=== PATIENT | male | born 1955 | race Caucasian/White ===

== ENCOUNTER 2023-11-01 09:49 | Emergency (ER) | payer MEDICARE, SELFPAY ==
[2023-11-01] VITALS (16 sets, daily range): BP systolic 135–167; BP diastolic 85–100; PULSE 92–114; RESP 14–23; TEMP 36.7; O2SAT 93–96; BMI 24.3
--- NOTE | 2023-11-01 10:15 | DI.RAD.S_ITS ---
PROCEDURE: XR CHEST 1V INDICATIONS: chest pain TECHNIQUE: One view of the chest was acquired. COMPARISON: None. FINDINGS: Surgical changes and devices: None. Lungs and pleura: Right lower lung field opacity. No pleural effusions or pneumothorax. Mediastinum: Mediastinal contours appear normal. Heart size is normal. Bones and chest wall: No suspicious bony lesions. Overlying soft tissues appear unremarkable. IMPRESSION: Right lower lung field opacity concerning for pneumonia. Recommend follow-up radiographs to resolution. Dictated by: Romeo Burton M.D. on 11/01/2023 at 10:39 Approved by: Romeo Burton M.D. on 11/01/2023 at 10:40
[2023-11-01] MEDS: ASPIRIN 81 MG CHEW TAB 324 MG PO (10:19)
[2023-11-01 10:28] LABS: Add Manual Diff / Slide Review YES; Hematocrit 42.2 % (41-53); Hemoglobin 13.7 g/dL (13.5-17.5); INR 1.1 (0.9-1.3); Mean Corpuscular HGB Conc 32.4 % (30-36); Mean Corpuscular Hemoglobin 28.2 PG (26-34); Mean Corpuscular Volume 87.1 fL (80-100); Platelet Count 353 X10^3/uL (150-400); Prothrombin Time 12.4 SECONDS (9.4-12.5); Red Blood Cell Count 4.84 X10^6/uL (4.5-5.9); Red Cell Distribution Width 14.1 % (11.6-14.8); White Blood Cell Count 13.6 X10^3/uL (4.5-11.0)
[2023-11-01 10:31] LABS: PTT Partial Thromboplastin Tim 36 SECONDS (25.1-36.5)
[2023-11-01 10:36] LABS: Alanine Aminotransferase 18 IU/L (<50); Albumin 4.2 g/dL (3.5-5.0); Alkaline Phosphatase 120 U/L (38-126); Aspartate Aminotransferase 23 IU/L (17-59); BUN Creatinine Ratio 26.7 (6-22); Bilirubin Total 0.7 mg/dL (0.2-1.3); Blood Urea Nitrogen 23 mg/dL (9-20); Calcium 9.7 mg/dL (8.4-10.2); Carbon Dioxide 29 mmol/L (22-32); Chloride 101 mmol/L (98-107); Creatine Kinase 61 U/L (55-170); Estimated Glomerular Filt Rate > 60 mL/min (>60); Globulin 4.1 g/dL (1.7-4.1); Glucose 139 mg/dL (80-110); HEMOLYSIS 17 (0-50); Lipase 33 U/L (23-300); Magnesium 2.2 mg/dL (1.6-2.3); Potassium 4.4 mmol/L (3.4-5.1); Sodium 135 mmol/L (137-145); Total Protein 8.3 g/dL (6.3-8.2)
[2023-11-01 10:46] LABS: Troponin I < 0.012 ng/mL (0.01-0.034)
[2023-11-01 11:00] LABS: Neutrophils Absolute Manual 11832 /uL (3000-5900); RBC Morphology Normal Morphology; Total Cells Counted 100
--- NOTE | 2023-11-01 11:09 | ED_ITS ---
HPI - Chest Pain General Chief Complaint: Chest Pain Stated Complaint: Cest pain when he coughs and right shoulder pain Time Seen by Provider: 11/01/23 11:08 Source: patient Mode of arrival: Ambulatory Limitations: no limitations History of Present Illness HPI narrative: Patient is a 68-year-old male who has a active smoker does not go to doctors presents today with increasing shortness of breath and right shoulder pain ongoing for the last 5 days. He reports that he started maybe having some pain with deep breathing and then had some right shoulder pain that is fairly constant. Having any chest pain now. He does have some increasing shortness of breath. He denies any fever or chills. No abdominal pain nausea or vomiting. He has no right upper quadrant pain. Pain in his right shoulder not reproducible with movement. He denies any sort of injury. He is noted to be tachycardic. Denies recent travel. Related Data Previous Rx's Medication Instructions Recorded hydrocodone 5 mg-acetaminophen 325 1 tab PO Q6H PRN pain #10 tabs 11/01/23 mg tablet Allergies Allergy/AdvReac Type Severity Reaction Status Date / Time No Known Drug Allergies Allergy Verified 11/01/23 10:15 Patient History Social History Smoking Status: Current every day smoker Smoking Status: Current every day smoker alcohol intake frequency: holidays/special occasions only Substance Use Type: marijuana Exam Initial Vital Signs Initial Vital Signs: Vital Signs Blood Pressure 142/95 H 11/01/23 10:07 GENERAL: Alert pleasant 68-year-old male and in no acute distress. HEENT: Head atraumatic,EOMI, pupils reactive, face symmetric, moist mucous membranes CARDIOVASCULAR: Regular rate and rhythm without murmurs, rubs or gallops. RESPIRATORY: Breath sounds equal bilaterally, no wheezes rales or rhonchi. ABDOMEN: Soft, nontender. Normoactive bowel sounds all 4 quadrants. No guarding or rebound. EXTREMITIES: Normal range of motion, no clubbing or edema. Neurovascularly intact NEUROLOGICAL: Alert and oriented x4. SKIN: Warm, dry, no laceration, no petechiae, no rashes or lesions. Course Orders Ordered: ED Orders 11/01/23 10:12 Complete Blood Count AUTO DIFF Stat Comprehensive Metabolic Panel Stat D Dimer Stat Lipase Stat Magnesium Stat PTT Partial Thromboplastin Oni Stat Prothrombin Time INR Stat Troponin & CK Cardiac Panel Stat 11/01/23 10:15 XR chest 1V Stat 11/01/23 10:16 EKG-12 Lead Stat 11/01/23 12:15 BNP [NT-proBNP (BNP-Adult 18+)] Stat Trop I [Troponin I] Stat 11/01/23 13:06 CT angio chest PE protocol Stat 11/01/23 14:34 Consult to [employer] [employer] - Sexual Health Physician Stat Discontinued Medications Albuterol/Ipratropium (Albuterol/Ipratropium 3 Ml Ampul) 3 ml INH NOW ONE Stop: 11/01/23 11:11 Last Admin: 11/01/23 11:14 Dose: 3 ml Documented By: MARCELLO Aspirin (Aspirin 81 Mg Chew Tab) 324 mg PO NOW ONE Stop: 11/01/23 10:16 Last Admin: 11/01/23 10:19 Dose: 324 mg Documented By: MARCELLO Ketorolac Tromethamine (Ketorolac 30 Mg/Ml Vial) 15 mg IV NOW ONE Stop: 11/01/23 11:12 Last Admin: 11/01/23 11:13 Dose: 15 mg Documented By: MARCELLO Vital Signs Vital signs: Vital Signs - 8 hr 11/01/23 11:23 11/01/23 11:30 11/01/23 11:30 Pulse Rate 98 H 98 H Respiratory Rate 20 18 Blood Pressure 135/89 Pulse Oximetry 96 94 Oxygen Delivery Method Room Air 11/01/23 12:00 11/01/23 12:00 11/01/23 12:30 Pulse Rate 98 H Respiratory Rate 23 Blood Pressure 145/89 H 143/87 H Pulse Oximetry 93 Oxygen Delivery Method Room Air 11/01/23 12:30 11/01/23 13:00 11/01/23 13:00 Pulse Rate 96 H 94 H Respiratory Rate 23 21 Blood Pressure 140/86 Pulse Oximetry 93 93 Oxygen Delivery Method 11/01/23 13:32 11/01/23 13:33 11/01/23 13:33 Pulse Rate 97 H 96 H Respiratory Rate 22 21 Blood Pressure 162/87 H Pulse Oximetry 94 94 Oxygen Delivery Method 11/01/23 14:00 11/01/23 14:00 11/01/23 14:30 Pulse Rate 93 H 93 H Respiratory Rate 22 17 Blood Pressure 155/87 H Pulse Oximetry 94 94 Oxygen Delivery Method 11/01/23 14:30 11/01/23 15:00 11/01/23 15:00 Pulse Rate 92 H Respiratory Rate 15 Blood Pressure 157/89 H 163/100 H Pulse Oximetry 94 Oxygen Delivery Method 11/01/23 15:36 11/01/23 15:37 11/01/23 15:37 Pulse Rate 92 H 94 H Respiratory Rate 22 Blood Pressure 159/91 H Pulse Oximetry 95 95 Oxygen Delivery Method MDM - Chest Pain Lab Data 11/01/23 10:12 11/01/23 10:12 Labs: Lab Results 11/01/23 11/01/23 Range/Units 10:12 12:15 WBC 13.6 H (4.5-11.0) X10^3/uL RBC 4.84 (4.5-5.9) X10^6/uL Hgb 13.7 (13.5-17.5) g/dL Hct 42.2 (41-53) % MCV 87.1 (80-100) fL MCH 28.2 (26-34) PG MCHC 32.4 (30-36) % RDW 14.1 (11.6-14.8) % Plt Count 353 (150-400) X10^3/uL Neut % (Auto) Not Reportable Lymph % (Auto) Not Reportable Leake % (Auto) Not Reportable Eos % (Auto) Not Reportable Baso % (Auto) Not Reportable Lymph # (Auto) Not Reportable Leake # (Auto) Not Reportable Baso # (Auto) Not Reportable Total Counted 100 Seg Neutrophils % 87.0 H (38-70) % Lymphocytes % (Manual) 7.0 L (25-45) % Monocytes % (Manual) 4.0 (2-11) % Metamyelocytes % 2.0 H (-0) % Neutrophils # (Manual) 61748 H (4575-8107) /uL RBC Morphology Normal morphology PT 12.4 (9.4-12.5) SECONDS INR 1.1 (0.9-1.3) APTT 36 (25.1-36.5) SECONDS D-Dimer 1365 H (<500) ng/ml Sodium 135 L (137-145) mmol/L Potassium 4.4 (3.4-5.1) mmol/L Chloride 101 (98-107) mmol/L Carbon Dioxide 29 (22-32) mmol/L BUN 23 H (9-20) mg/dL Creatinine 0.86 (0.66-1.25) mg/dL Estimated GFR > 60 (>60) mL/min BUN/Creatinine Ratio 26.7 H (6-22) Glucose 139 H (80-110) mg/dL Calcium 9.7 (8.4-10.2) mg/dL Magnesium 2.2 (1.6-2.3) mg/dL Total Bilirubin 0.7 (0.2-1.3) mg/dL AST 23 (17-59) IU/L ALT 18 (<50) IU/L Alkaline Phosphatase 120 (38-126) U/L Total Creatine Kinase 61 (55-170) U/L Troponin I < 0.012 < 0.012 (0.01-0.034) ng/mL NT-Pro-B Natriuret Pep 60 (<125) pg/mL Total Protein 8.3 H (6.3-8.2) g/dL Albumin 4.2 (3.5-5.0) g/dL Globulin 4.1 (1.7-4.1) g/dL Albumin/Globulin Ratio 1.0 (1.0-2.8) Lipase 33 (23-300) U/L Imaging Data Chest x-ray: Radiologist's Impression: PROCEDURE: XR CHEST 1V INDICATIONS: chest pain TECHNIQUE: One view of the chest was acquired. COMPARISON: None. FINDINGS: Surgical changes and devices: None. Lungs and pleura: Right lower lung field opacity. No pleural effusions or pneumothorax. Mediastinum: Mediastinal contours appear normal. Heart size is normal. Bones and chest wall: No suspicious bony lesions. Overlying soft tissues appear unremarkable. IMPRESSION: Right lower lung field opacity concerning for pneumonia. Recommend follow-up radiographs to resolution. Dictated by: Romeo Burton M.D. on 11/01/2023 at 10:39 CT scan - chest: Radiologist's Impression: PROCEDURE: CT ANGIO CHEST PE PROTOCOL INDICATIONS: high dimer with sob TECHNIQUE: After the administration of intravenous contrast, 2 mm thick sections acquired from the pulmonary apices to the posterior costophrenic angles. 3-dimensional maximum intensity projection (MIP) coronal and sagittal reformats were then acquired through the thorax. For radiation dose reduction, the following was used: automated exposure control, adjustment of mA and/or kV according to patient size. COMPARISON: [facility], CR, XR CHEST 1V, 11/01/2023, 10:18. FINDINGS: Image quality: Diagnostic. Pulmonary arteries: Pulmonary arteries are normal in size, and demonstrate no intraluminal filling defects to suggest central pulmonary embolism. Lower Neck: No enlarged lymph nodes. Thyroid: No thyroid nodules which require sonographic follow up, per consensus guidelines. Axillae: No enlarged lymph nodes. Chest Wall: Unremarkable. Bones: Unremarkable. Lungs and Pleura: No pneumothorax or pleural effusions. No consolidation or suspicious nodules on the left. There is, however, a masslike structure within the infrahilar right lower lobe measuring approximately 2.7 x 4.5 cm, with immediately adjacent more peripheral retention of pulmonary secretions and alveolar consolidation. Heart: Heart size is normal. No pericardial effusion. Thoracic Vessels: No aortic aneurysm. There is a suspected impingement upon versus invasion into the right inferior pulmonary vein seen on series 5, image 81. Mediastinum and Jessica: No enlarged lymph nodes. Esophagus: No wall thickening. No hiatal hernia. Upper Abdomen: Visualized upper abdomen solid organs and bowel loops appear normal. IMPRESSION: Suspect central pulmonary mass lesion measuring approximately 2.7 x 4.5 cm causing retention of pulmonary secretions more peripherally involving the infrahilar right lower lobe, best seen centered on series 5, image 85. It is possible that there is an invasion into the right inferior pulmonary vein given what appears to be a either immediately adjacent soft tissue infiltration into the right posterior mediastinal fat versus invasion into that area and through the inferior right pulmonary vein wall. Please refer to series 5, image 81. Dictated by: Jasen Toledo M.D. on 11/01/2023 at 13:56 ECG Data Attestation: I personally reviewed and interpreted this ECG as follows: Interpretation: Sinus rhythm rate 077 ME interval [address] changes no T-wave inversions no priors to compare EKG 2. Sinus rhythm rate 97 no changes similar to prior MDM Narrative Medical decision making narrative: MDM CC: Shortness of breath right shoulder pain Complicating co-morbidities: Active smoker Medical records reviewed: None Differential considered: Acute coronary syndrome, pulmonary embolism, cholecystitis cholelithiasis, pneumonia Exam documented above, pertinent findings include: Negative right upper quadrant pain and Tran's sign, overall appears well and comfortable Lab Test results independently reviewed as above. Pertinent findings: D-dimer 1300, WBC 13.6, hemoglobin 13.7, hematocrit 42.2, sodium 135, potassium 4.4, chloride 101, carbon dioxide 29, BUN 23, creatinine 0.8, glucose 139, troponin negative x2 Independently reviewed EKG as above Imaging studies independently reviewed: Chest x-ray right lower lobe pneumonia, CT is read as central pulmonary mass 2.7 x 4.5 cm causing retention secretions in the right lower lobe Consultations: Dr. Wynn, Oncology updated on patient's symptoms test results he is given patient information. [employer] working to get patient a primary care provider Treatments: Toradol Re-evaluations: Patient's pain has subsided somewhat Toradol. Discussion: Patient presents today with right shoulder pain and some increasing shortness of breath. He has no infectious symptoms but his chest x-ray was read as pneumonia. CT suspect mass. Patient is not having fever chills or productive cough. Biggest complaint is some referred pain to the right shoulder suspect is from his mass. With his active smoking history suspect lung cancer. Social work involved in case trying to get patient a PCP. Patient and son are aware of presumed diagnosis. Will need close follow-up. Discharge Plan Departure Patient Disposition: Home Clinical Impression: Lung mass Instructions: DI for Lung Cancer Activity Restrictions/Additional Instructions: *You have been diagnosed with lung mass *What to do: You unfortunately have a new lung mass on the right lung this is likely causing your right shoulder pain. You will need to get a referral to Oncology. There is Oncology at [facility] or [facility]. *Continue to take medications as directed Isabella 1 tablet every 6 hours if needed for severe pain or nighttime to help *Follow up with your primary care provider in 2-3 days or call [phone] Social work will follow up with you for a primary visit. Dr. Hendrix [phone] ([facility]) Dr. Wynn *Return to ER if you should have increasing pain shortness of breath fever chills or any new, worsening or concerning symptoms CONTROLLED SUBSTANCE DISCHARGE (Narcotoic/benzodiazepine/Flexeril/Phenergan) 1. You have been prescribed narcotic medications, it does have acetaminophen/Tylenol/paracetamol in it, DO NOT TAKE MORE THAN 4,00mg in 24 hours of Tylenol. TRAMADOL DOES NOT CONTAIN TYLENOL 2. Please understand that we cannot provide further refills of narcotics, benzodiazepines or controlled substances through the ED and her pain management will need to be through your provider. 3. While on these medications you cannot drive or operate heavy machinery. 4. You cannot sign legal documents or perform any duties such as this. 5. As long as you're taking opiate pain medications he should also be taking a stool softener such as Colace, Dulcolax, MiraLAX or prune juice, to help avoid constipation. Prescriptions: New hydrocodone-acetaminophen 5-325 mg tablet 1 tab PO Q6H PRN (Reason: pain) Qty: 10 0RF Referrals: Wade Hendrix MD [Non-Staff] - Sherri Wynn MD [Physician] - Stand Alone Forms: Patient Portal/API
[2023-11-01] MEDS: KETOROLAC 30 MG/ML VIAL 15 MG IV (11:13)
[2023-11-01] MEDS: ALBUTEROL/IPRATROPIUM 3 ML AMPUL INH (11:14)
[2023-11-01 12:17] LABS: D Dimer 1365 ng/ml (<500)
[2023-11-01 12:50] LABS: NT-proBNP (BNP-Adult 18+) 60 pg/mL (<125)
[2023-11-01 12:52] LABS: Troponin I < 0.012 ng/mL (0.01-0.034)
--- NOTE | 2023-11-01 13:06 | DI.CT.S_ITS ---
PROCEDURE: CT ANGIO CHEST PE PROTOCOL INDICATIONS: high dimer with sob TECHNIQUE: After the administration of intravenous contrast, 2 mm thick sections acquired from the pulmonary apices to the posterior costophrenic angles. 3-dimensional maximum intensity projection (MIP) coronal and sagittal reformats were then acquired through the thorax. For radiation dose reduction, the following was used: automated exposure control, adjustment of mA and/or kV according to patient size. COMPARISON: [facility], CR, XR CHEST 1V, 11/01/2023, 10:18. FINDINGS: Image quality: Diagnostic. Pulmonary arteries: Pulmonary arteries are normal in size, and demonstrate no intraluminal filling defects to suggest central pulmonary embolism. Lower Neck: No enlarged lymph nodes. Thyroid: No thyroid nodules which require sonographic follow up, per consensus guidelines. Axillae: No enlarged lymph nodes. Chest Wall: Unremarkable. Bones: Unremarkable. Lungs and Pleura: No pneumothorax or pleural effusions. No consolidation or suspicious nodules on the left. There is, however, a masslike structure within the infrahilar right lower lobe measuring approximately 2.7 x 4.5 cm, with immediately adjacent more peripheral retention of pulmonary secretions and alveolar consolidation. Heart: Heart size is normal. No pericardial effusion. Thoracic Vessels: No aortic aneurysm. There is a suspected impingement upon versus invasion into the right inferior pulmonary vein seen on series 5, image 81. Mediastinum and Jessica: No enlarged lymph nodes. Esophagus: No wall thickening. No hiatal hernia. Upper Abdomen: Visualized upper abdomen solid organs and bowel loops appear normal. IMPRESSION: Suspect central pulmonary mass lesion measuring approximately 2.7 x 4.5 cm causing retention of pulmonary secretions more peripherally involving the infrahilar right lower lobe, best seen centered on series 5, image 85. It is possible that there is an invasion into the right inferior pulmonary vein given what appears to be a either immediately adjacent soft tissue infiltration into the right posterior mediastinal fat versus invasion into that area and through the inferior right pulmonary vein wall. Please refer to series 5, image 81. Dictated by: Jasen Toledo M.D. on 11/01/2023 at 13:56 Approved by: Jasen Toledo M.D. on 11/01/2023 at 14:02
--- NOTE | 2023-11-01 15:50 | CM.SWNOTE ---
ED SENIOR SUSTAINABILITY CONSULTANT Note Pt is a 68 y/o male who lives in [place]. Pt presents to the ED w/ right shoulder pain, chest pain w/ cough and deep inspiration. SENIOR SUSTAINABILITY CONSULTANT called th [facility] but was unable to set pt up w/ an appointment. SENIOR SUSTAINABILITY CONSULTANT [facility]. Due to pt's controlled substance prescription SENIOR SUSTAINABILITY CONSULTANT was informed that they would have a RN call SENIOR SUSTAINABILITY CONSULTANT back to schedule w/ Dr. Gonsales. Pt scheduled w/ Alejandra Calderón, November 03 at 3:30 pm. SENIOR SUSTAINABILITY CONSULTANT called pt and confirmed date and time w/ him. MARSHA Crandall, [facility]
== END 2023-11-01 15:58 | disposition home or self-care (01) ==
PROVIDERS: Emergency Provider Emergency Medicine
DX: R91.8 Other nonspecific abnormal finding of lung field (principal); R07.9 Chest pain, unspecified
CPT/HCPCS: 36415; 71045; 71275; 80053; 82550; 83690; 83735; 83880; 84484; 85007; 85025; 85379; 85610; 85730; 93005; 94640; 96374; 99284; 99285; J1885; Q9967

== ENCOUNTER → 2023-11-05 07:15 | Outpatient (CLI) | payer MEDICARE, SELFPAY ==
[2023-11-05 08:46] LABS: Alanine Aminotransferase 16 IU/L (<50); Albumin 3.7 g/dL (3.5-5.0); Albumin Globulin Ratio 1.1 (1.0-2.8); Alkaline Phosphatase 115 U/L (38-126); Aspartate Aminotransferase 20 IU/L (17-59); Bilirubin Total 0.3 mg/dL (0.2-1.3); Blood Urea Nitrogen 24 mg/dL (9-20); Calcium 9.4 mg/dL (8.4-10.2); Carbon Dioxide 30 mmol/L (22-32); Chloride 105 mmol/L (98-107); Cholesterol 141 mg/dL (140-199); Estimated Glomerular Filt Rate > 60 mL/min (>60); Globulin 3.3 g/dL (1.7-4.1); Glucose 131 mg/dL (80-110); HDL Cholesterol 42 mg/dL (40-60); HEMOLYSIS < 15 (0-50); LDL Cholesterol Calculated 81 mg/dL (<100); Potassium 4.8 mmol/L (3.4-5.1); Sodium 140 mmol/L (137-145); Triglycerides 88 mg/dL (35-150)
[2023-11-05 08:50] LABS: Hemoglobin A1C% w Est Avg Glu 5.9 % (4.0-6.0)
== END ==
PROVIDERS: Referring Provider Family Medicine; Visit Provider Family Medicine
DX: R73.9 Hyperglycemia, unspecified (principal)
CPT/HCPCS: 36415; 80053; 80061; 83036

== ENCOUNTER 2023-11-19 11:02 | Day surgery (SDC) | payer MEDICARE, SELFPAY ==
[2023-11-19] VITALS (10 sets, daily range): BP systolic 115–199; BP diastolic 78–134; PULSE 85–122; RESP 16–24; TEMP 36.2–36.6; O2SAT 92–98; BMI 24.3
--- NOTE | 2023-11-19 | PATH_ITS ---
Note [facility] Accession Number: [id number] TESTS RESULT FLAG UNITS REF RANGE LAB Clinician Provided Cytology Information No. of containers..01 Other (Miscellaneous) Source: RIGHT LOWER LOBE LUNG DIAGNOSIS: RIGHT LOWER LOBE LUNG INCONCLUSIVE. THIS INTERPRETATION INCLUDES EVALUATION OF A CELL BLOCK. SCANT, POORLY PRESERVED ATYPICAL CELLS; INSUFFICIENT ATYPICAL CELLULAR VOLUME FOR ANCILLARY STUDIES. Pathologist ICD10: 01 J44.9 Signed out by: Tabby Myers MD, Pathologist NPI- [id number] Performed by: Graham Edward, Asl Interpreter ([facility]) Gross description: 20 CC, RED, CLOUDY RECEIVED: FRESH IN WHITE CAP CONTAINER.VO /VDU 11/21/2023 0740 Local FLAG LEGEND: L-Low Normal,H-High Normal,LL-Alert Low,HH-Alert High <-Panic Low,>-Panic High,A-Abnormal,AA-Critical Abnormal Performed at: 01 =Z [facility] [address], [place] [address] Dov Michaels MD, Performed at: 01 [facility] [address], [place], [place] [id number] MD Dov Michaels MD Phone: [phone]
[2023-11-19] MEDS: LACTATED RINGERS 1,000 ML 100 ML IV (12:15)
--- NOTE | 2023-11-19 12:53 | PM.OP.ENDO ---
Procedure & Clinicians Study performed: Bronchoscopy with right lower lobe bronchial biopsies and bronchial lavage. Same procedure as scheduled: Yes Indications: Lung mass Procedure Notes SCOAP/Timeout: Time-out peripheral prior to procedure. Procedure in detail: Patient was sedated and intubated by anesthesia for airway protection. Bronchoscope was inserted into the endotracheal tube. Jyoti was normal. Examination of the airways demonstrated obstructing lesion in the right lower lobe bronchi. Next I performed several endobronchial biopsies from the right lower lobe. There was minimal amount of bleeding with good hemostasis achieved. I performed bronchial alveolar lavage from right lower lobe using 30 mL of saline with approximately 15 mL of fluid returned. Patient tolerated the procedure well. Impression: Right lower lobe endobronchial lesion most consistent with primary lung malignancy. Status post biopsy and bronchoalveolar lavage. Biopsy sent to pathology and lavage sent for cytology. Patient to follow-up with pulmonary clinic in 3-4 days for results.
--- NOTE | 2023-11-19 13:12 | DI.RAD.S_ITS ---
PROCEDURE: XR CHEST 1V INDICATIONS: SOB post bronchoscopy TECHNIQUE: One view of the chest was acquired. COMPARISON: [facility], CT, CT ANGIO CHEST PE PROTOCOL, 11/01/2023, 13:26. [facility], CR, XR CHEST 1V, 11/01/2023, 10:18. FINDINGS: Surgical changes and devices: None. Lungs and pleura: Ill-defined right-sided mass again noted with associated postobstructive pneumonitis. No pneumothorax. No pleural effusions or pneumothorax. Mediastinum: Mediastinal contours appear normal. Heart size is normal. Bones and chest wall: No suspicious bony lesions. Overlying soft tissues appear unremarkable. IMPRESSION: Ill-defined right-sided mass again noted with associated postobstructive pneumonitis. No pneumothorax. Dictated by: Han Stanley M.D. on 11/19/2023 at 13:36 Approved by: Han Stanley M.D. on 11/19/2023 at 13:43
--- NOTE | 2023-11-19 13:27 | SUR.PHASEI ---
Patient arrived to PACU with dusky skin and labored breathing. Lungs sounds diminished/tight with exp wheeze. Patient not following commands. Anesthesia at bedside. Chest x-ray ordered and performed. Attempted to reach provider but have been unsuccessful. Currently patient denied pain but reported an increase in shortness of breath from his baseline.
[2023-11-19] MEDS: ALBUTEROL/IPRATROPIUM 3 ML AMPUL INH (13:34)
--- NOTE | 2023-11-19 13:36 | SUR.PHASEI ---
Spoke with Dr. Iverson regarding patient status. Neb ordered and provided. Patient may discharge per MD.
--- NOTE | 2023-11-19 13:48 | SUR.PHASEI ---
Neb complete. Patient reported breathing improved.
--- NOTE | 2023-11-19 14:20 | P.OP.COLON_ITS ---
Operative Date/Time/Diagnoses Date of procedure: 11/19/23 Time of procedure: 14:20 Pre-op diagnosis: Colorectal screening Procedure & Clinicians Study performed: Screening colonoscopy Same procedure as scheduled: Yes Indications: Colorectal screening Surgeon: Johnathan Sargent Procedure Notes Procedure in detail: The history and physical was performed/updated and the patient is ASA class is 2. The procedure was discussed in detail with the patient. Potential risks co mplications including infection, bleeding, missed diagnosis, perforation, need for surgery, and were explained. Their questions were answered and informed consent was obtained. Patient was brought to the procedure room and placed standard monitoring equipment. The patient's vital signs were monitored continuously throughout the entire procedure. Prior to starting time-out was performed. The patient was placed in the left lateral recumbent position. Procedural sedation was administered by anesthesia. Examination began with a thorough inspection of the perianal area there was no evidence of fissures, fistulae, external hemorrhoids or cutaneous malignancy. The colonoscopy scope was then placed into the anal canal and was advanced to the cecum, which was identified by the ileocecal valve, the appendiceal orifice and the confluence of the taenia. The scope was then slowly withdrawn examining colon thoroughly in all directions, irrigating it of any residual stool. The scope was retroflexed within the rectum The patient tolerated the procedure well. They will be discharged once criteria are met. The prep was of fair quality. The withdrawl time was 6 minutes. FINDINGS * Unremarkable colonoscopy. No masses polyps or inflammation. Normal healthy colonic mucosa. Specimen(s): none sent Impression: Normal colonoscopy Post-procedure Recommendations: Colonoscopy in 10 years Disposition: same day surgery
== END 2023-11-19 14:02 | disposition home or self-care (01) ==
PROVIDERS: PCP Family Medicine; Referring Provider Internal Medicine Critical Care Medicine; Visit Provider Internal Medicine Critical Care Medicine
PROC: 0BJ08ZZ Inspection of Tracheobronchial Tree, Via Natural or Artificial Opening Endoscopic (ICD-10-PCS; CPT 31622; principal; 2023-11-19 12:00)
DX: R06.02 Shortness of breath (principal); J44.9 Chronic obstructive pulmonary disease, unspecified; F17.200 Nicotine dependence, unspecified, uncomplicated
CPT/HCPCS: 31652; 71045; J2704

== ENCOUNTER → 2023-12-03 09:08 | Outpatient (CLI) | payer MEDICARE, SELFPAY | PROVIDERS: PCP Family Medicine; Referring Provider Internal Medicine; Visit Provider Internal Medicine | DX: R06.02 Shortness of breath (principal); C34.90 Malignant neoplasm of unspecified part of unspecified bronchus or lung; F17.210 Nicotine dependence, cigarettes, uncomplicated; J98.8 Other specified respiratory disorders | CPT/HCPCS: 94060; 94726; 94729 ==